=== PATIENT | female | born 1965 | race Caucasian/White ===

== ENCOUNTER 2017-09-18 16:05 | Emergency (ER) | payer OTHER ==
[~2017-09-18] VITALS: Wt 54.5 kg
[2017-09-18] MEDS ORDERED: TETRACAINE 0.5% 4 ML OPH LEFT EYE ONE (18:00)
[2017-09-18] MEDS ORDERED: ERYT1OIN6 OP (19:38)
--- NOTE | 2017-09-18 19:48 | ERD ---
ER Documentation Chief Complaint Chief Complaint SENT BY CLINIC FOR EYELASH IN R. EYE HPI Is a 51-year-old female presenting to the emergency department for a eyelash foreign body in the right eyelid that she noticed since last night. Patient states that it is mildly tender and it is irritating. Patient states that she was seen at the urgent care and they referred her here since they were not able to get the eyelash out. She denies any discharge ROS All systems reviewed and are negative except as per history of present illness. Medications Home Meds Active Scripts Erythromycin Base (Erythromycin) 1 Gm Oint...g., 1 GM OP Q6 for 7 Days Prov:AURELIAMaddiSHANIQUA PA-C 09/18/17 PMhx/Soc Medical and Surgical Hx: pt denies Surgical Hx Hx Miscellaneous Medical Probl: Yes (ARTHRITIS) Hx Alcohol Use: No Hx Substance Use: No Hx Tobacco Use: No Smoking Status: Never smoker Physical Exam Vitals Vital Signs Date Time Temp Pulse Resp B/P Pulse Ox O2 Delivery O2 Flow Rate FiO2 09/18/17 16:12 98.0 77 20 140/72 100 Physical Exam Const: WDWN Head: Atraumatic Eyes: Eyelash subconjunctival at 11 o'clock position ENT: Normal External Ears, Nose and Mouth. Neck: Full range of motion..~ No meningismus. Resp: Clear to auscultation bilaterally Cardio: Regular rate and rhythm, no murmurs Abd: Soft, non tender, non distended. Normal bowel sounds Skin: No petechiae or rashes Back: No midline or flank tenderness Ext: No cyanosis, or edema Neur: Awake and alert Psych: Normal Mood and Affect Results 24 hrs Current Medications Medications (Trade) Dose Ordered Sig/Ken Route PRN Reason Start Time Stop Time Status Last Admin Dose Admin Tetracaine HCl (Tetracaine 0.5% Steri-Unit Susana) 1 drop ONCE ONCE LEFT EYE 09/18/17 18:00 09/18/17 18:01 DC Procedures/MDM This is a 51-year-old female presenting to the emergency department with a eyelash foreign body in the right eye that she notes since last night. On examination there was no evidence of conjunctivitis. I have applied tetracaine and attempted to remove the eyelash with a sterile Q-tip but I was unsuccessful. I have consulted my supervising physician has also attempted to remove the eyelash and was unsuccessful since the eyelash appears to be subconjunctival. I have consulted my supervising physician suggested to irrigate the right eye with a August lens. Eyelash was unable to be removed and I have discussed with the patient that she will need to follow- up urgently with an fire protection fabricator tomorrow. A prescription for erythromycin ointment will be given for prophylaxis. I discussed with her to return to the ER for any worsening signs or symptoms patient understands and agrees this plan Departure Diagnosis: Primary Impression: Foreign body, eye Condition: Stable Patient Instructions: Foreign Object in the Cornea Referrals: [facility] Hours: Sat - Sat 9:00 AM - 5:00 PM Additional Instructions: Specialist:Usted tiene mikey condicin mdica que requiere que gabriela a un especialista maana .POR FAVOR,CON [place] SEGUIMIENTO DE PRIMARIA PHSICIAN refferal. SI USTED NO TIENE UN MDICO GENERAL Y / O USTED NO PUEDE PAGAR caprice a un mdico,los siguientes payne RECURSOS sido suministrado a usted. ES [place] RESPONSABILIDAD PARA SER VISTOS POR EL ESPECIALISTA: Slana toda la medicina jesus y aquilino se le indic. Regrese a estas instalaciones si no se mejora aquilino esperbamos o aquilino le dijimos. SHANIQUA ADAM PA-C Sep 18, 2017 19:48
[2017-09-18 20:30] VITALS: BP 132/65; PULSE 71; RESP 18; TEMP 98.4
== END 2017-09-18 20:30 | disposition home or self-care (01) ==
LOC: FTE 16:05
DX: T15.91XA Foreign body on external eye, part unspecified, right eye, initial encounter (principal); X58.XXXA Exposure to other specified factors, initial encounter; Y92.9 Unspecified place or not applicable
CPT/HCPCS: Z7502; Z7610; 99284

== ENCOUNTER 2018-12-13 13:13 | Emergency (ER) | payer OTHER ==
[~2018-12-13] VITALS: Ht 165.1 cm; Wt 52.3 kg
[~2018-12-13 13:13] MED LIST: ERYT1OIN6 OP
[2018-12-13 13:23] VITALS: Ht 165.1 cm; Wt 52.3 kg
--- NOTE | 2018-12-13 13:37 | ERD ---
ER Documentation Chief Complaint Chief Complaint generalize joint pain x2 wks, hx: Rheumotoid arthritis HPI 53-year-old female, with history of rheumatoid arthritis, presents to the emergency department, complaining of 2 weeks with worsening of generalized joint pain predominantly on the hips. The patient takes methotrexate, folic acid and naproxen for rheumatoid arthritis, she also takes levothyroxine for hypothyroidism. She denies fevers, no chills, no abdominal pain, no chest pain or shortness of breath. ROS All systems reviewed and are negative except as per history of present illness. Medications Home Meds Active Scripts Hydrocodone/Acetaminophen (Baker 5-325 Tablet) 1 Each Tablet, 1 TAB PO Q6H PRN for PAIN, #20 TAB Prov:CARLINE CHINCHILLA MD 12/13/18 Erythromycin Base (Erythromycin) 1 Gm Oint...g., 1 GM OP Q6 for 7 Days Prov:SHANIQUA ADAM PA-C 09/18/17 Allergies Allergies: Coded Allergies: No Known Allergy (Unverified , 09/18/17) PMhx/Soc Hx Miscellaneous Medical Probl: Yes (ARTHRITIS) Hx Alcohol Use: No Hx Substance Use: No Hx Tobacco Use: No FmHx Family History: No diabetes, No coronary disease Physical Exam Vitals Vital Signs Date Temp Pulse Resp B/P (MAP) Pulse Ox O2 O2 Flow FiO2 Time Delivery Rate 12/13/18 98.2 91 18 108/60 99 13:23 (76) Physical Exam Const: Mild distress due to pain Head: Atraumatic Eyes: Normal Conjunctiva ENT: Normal External Ears, Nose and Mouth. Neck: Full range of motion. No meningismus. Resp: Clear to auscultation bilaterally Cardio: Regular rate and rhythm, no murmurs Abd: Soft, non tender, non distended. Normal bowel sounds Skin: No petechiae or rashes Back: No midline or flank tenderness Ext: Generalized pain, associated with decreased range of motion but no erythema, warmth, or edema Neur: Awake and alert Psych: Normal Mood and Affect Results 24 hrs Current Medications Medications Dose Sig/Ken Start Time Status Last (Trade) Ordered Route PRN Stop Time Admin Dose Reason Admin 50 ml @ ONCE ONCE 12/13/18 DC 12/13/18 Methylprednis 100 mls/hr IVPB 14:00 12/13/18 14:03 olone Sodium 14:29 Succinate 500 mg/Dextrose Morphine 10 mg ONCE ONCE 12/13/18 DC 12/13/18 Sulfate PO 14:00 12/13/18 14:03 (morphine) 14:01 Procedures/MDM Vital signs stable. Differential diagnosis considered include osteoarthritis, rheumatoid arthritis, reactive arthritis, lupus, thyroid disease. Low suspicion for septic arthritis. During the ED course the patient remained stable, no new complaints. The patient received treatment with Solu-Medrol IV and morphine p.o. presenting overall improvement of the symptoms. Results and clinical impression discussed with the patient who agrees with management. The patient is stable to be treated outpatient and will be discharged home with a Rx for Baker, some side effects of prescribed medications (headache, rash, nausea, vomiting, diarrhea, drowsiness, habituation, bleeding, hypertension, interactions with other medications) were reviewed. Follow up with the primary care provider in the next 48h has been recommended. If symptoms persist, worsen or new symptoms develop, then patient should return to the ED immediately. Instructions explained and given directly by me to the patient with acknowledgm ent and demonstrated understanding. Disclaimer: Inadvertent spelling and grammatical errors are likely due to EHR/dictation software use and do not reflect on the overall quality of patient care. Also, please note that the electronic time recorded on this note does not necessarily reflect the actual time of the patient encounter. Departure Diagnosis: Primary Impression: Rheumatoid arthritis flare Condition: Stable Additional Instructions: Muchas lai por [facility] para slaughter servicio. Esperamos que en slaughter visita a la hong de emergencia slaughter problema medico haya sido solucionado y que se sienta mucho mejor. Para estar seguros que slaughter mejoria sigue en proceso, le pedimos el favor de hacer mikey nic de seguimiento medico con slaughter doctor primario en los proximos 2-4 [place]. Lleve con usted estos documentos y las medicinas recetadas. Si selin sintomas empeoran, NO SE ESPERE, por favor regrese a hong de emergencia INMEDIATAMENTE. En gianna que usted no tenga un mdico de atencin primaria: Llame al mdico o clnica comunitaria de referencia que aparece abajo charles las horas de consultorio para hacer mikey nic para que le vean. CLINICAS: [facility] [phone] [id number] [facility] [phone] [facility] [phone] [place] [id number] [phone] [place] [id number] [phone] [facility]. [phone] CARLINE MARLOW MD Dec 13, 2018 13:37
[2018-12-13] MEDS ORDERED: METHYLPRED. NA SUCC 500 MG in DEXTROSE 5% 50 ML IVPB ONE (14:00)
[2018-12-13] MEDS ORDERED: morphine LIQ (10 MG/5 ML) CUP PO ONE (14:00)
[2018-12-13] MEDS ORDERED: HYDR-4011 PO (14:30)
[2018-12-13 14:45] VITALS: BP 110/63; PULSE 88; RESP 16
== END 2018-12-13 14:45 | disposition home or self-care (01) ==
LOC: FTE 13:13
DX: M06.9 Rheumatoid arthritis, unspecified (principal); E03.9 Hypothyroidism, unspecified
CPT/HCPCS: 96374; J2930; Z7502; Z7610